=== PATIENT | male | born 1970 | race Caucasian/White ===

== ENCOUNTER 2017-05-13 07:20 | Day surgery (SDC) | payer OTHER ==
[2017-05-11 15:13] VITALS: BP 100/57
[2017-05-11 15:14] LABS: BASOPHILS % (AUTO) 0.3 % (0.0-5.0); EOSINOPHILS % (AUTO) 1.7 % (0.0-8.0); HEMATOCRIT 41.1 % (42-54); LYMPHOCYTES % (AUTO) 33.6 % (21.0-51.0); MEAN CORPUSCULAR HEMOGLOBIN 29.7 pg (27.0-33.0); MEAN CORPUSCULAR HGB CONC 34.1 g/dL (32.0-36.0); MEAN CORPUSCULAR VOLUME 87.1 fL (79-99); NEUTROPHILS % (AUTO) 54.4 % (40.0-77.0); NUCLEATED RED BLOOD CELLS 0.1 % (0.0-0.19); PLATELET COUNT (AUTO) 263 K/uL (130-400); RED BLOOD CELL COUNT(AUTO) 4.72 MIL/uL (4.50-6.20); RED CELL DISTRIBUTION WIDTH 13.4 % (11.0-15.5); WHITE BLOOD COUNT (AUTO) 7.1 K/uL (4.8-10.8)
[2017-05-11 15:27] LABS: CREATININE 1.1 mg/dL (0.5-1.5); POTASSIUM 4.7 mmol/L (3.5-5.1)
[2017-05-11 15:30] LABS: INR 0.95 (0.85-1.15); PARTIAL THROMBOPLASTIN TIME 26.4 SEC (26.3-35.5)
[~2017-05-13] VITALS: Ht 167.6 cm; Wt 115.7 kg
[2017-05-13] VITALS (23 sets, daily range): BP systolic 94–125; BP diastolic 56–87
[~2017-05-13 07:20] MED LIST: ALLO100T PO; AMLO1CAP12 PO; ASPI-1012 PO; ATOR40TA69 PO; CYCL10 PO; LOSA25TA21 PO; METF500T6 PO; OMEGA 3 KRILL OIL PO; OMEP20TA25 PO; SODIUM CHLORIDE 0.9% 1000ML 1,000 ML IV SCH
[2017-05-13] MEDS ORDERED: MIDAZOLAM HCL 1 MG/ML 2ML VIAL ONE ×2 (08:04→08:27)
[2017-05-13] MEDS ORDERED: FENTANYL CITRATE PF 50 MCG/1 ML 2ML VIAL ONE (08:04)
[2017-05-13] MEDS ORDERED: BENZOCAINE 20% 57 GM SPRAY ONE (08:08)
== END 2017-05-13 13:50 | disposition home or self-care (01) ==
LOC: DAH 07:20 → SUH 07:20
PROVIDERS: ATTEND Internal Medicine Cardiovascular Disease
DX: G45.8 Other transient cerebral ischemic attacks and related syndromes (principal); I34.0 Nonrheumatic mitral (valve) insufficiency
CPT/HCPCS: 36415; 80048; 82948 ×2; 85025; 85610; 85730; 93312; A4606; J2250 ×2; J3010; J7030

== ENCOUNTER 2017-06-03 05:53 | Day surgery (SDC) | payer OTHER ==
[2017-06-01 15:47] LABS: BASOPHILS % (AUTO) 1.1 % (0.0-5.0); EOSINOPHILS % (AUTO) 1.5 % (0.0-8.0); HEMATOCRIT 41.7 % (42-54); LYMPHOCYTES % (AUTO) 30.2 % (21.0-51.0); MEAN CORPUSCULAR HEMOGLOBIN 29.3 pg (27.0-33.0); MEAN CORPUSCULAR VOLUME 86.2 fL (79-99); MONOCYTES % (AUTO) 11.9 % (3.0-13.0); NEUTROPHILS % (AUTO) 55.3 % (40.0-77.0); PLATELET COUNT (AUTO) 235 K/uL (130-400); RED BLOOD CELL COUNT(AUTO) 4.84 MIL/uL (4.50-6.20); RED CELL DISTRIBUTION WIDTH 13.2 % (11.0-15.5); WHITE BLOOD COUNT (AUTO) 8.3 K/uL (4.8-10.8)
[2017-06-01 15:48] VITALS: BP 115/64
[2017-06-01 16:02] LABS: INR 0.93 (0.85-1.15); PARTIAL THROMBOPLASTIN TIME 25.9 SEC (26.3-35.5); PROTHROMBIN TIME 9.8 SEC (9.6-11.6)
[2017-06-01 16:05] LABS: POTASSIUM 4.1 mmol/L (3.5-5.1)
[2017-06-03] VITALS (8 sets, daily range): BP systolic 101–118; BP diastolic 63–85
[~2017-06-03] VITALS: Ht 170.2 cm; Wt 104.1 kg
[~2017-06-03 05:53] MED LIST changes: -SODIUM CHLORIDE 0.9% 1000ML 1,000 ML IV SCH
[2017-06-03] MEDS ORDERED: CEFAZOLIN SODIUM 1 GM VIAL IVP SCH (06:00)
[2017-06-03] MEDS ORDERED: SODIUM CHLORIDE 0.9% 1000ML 1,000 ML IV SCH (06:00)
[2017-06-03] MEDS ORDERED: BUPIVACAINE/PF 0.25% 30ML VIAL IJ ONE (07:22)
[2017-06-03] MEDS ORDERED: CEFAZOLIN 1GM / D5W 50ML 150 ML ONE (07:22)
[2017-06-03] MEDS ORDERED: LIDOCAINE HCL 1% MDV 50ML VIAL ONE (07:23)
[2017-06-03] MEDS ORDERED: CEPH250C2 PO (08:28)
[2017-06-03] MEDS ORDERED: ACETAMINOPHEN 325 MG TAB PO PRN (08:30)
== END 2017-06-03 10:30 | disposition home or self-care (01) ==
LOC: DAH 05:53
PROVIDERS: ATTEND Internal Medicine Cardiovascular Disease
DX: I48.0 Paroxysmal atrial fibrillation (principal); G45.9 Transient cerebral ischemic attack, unspecified; R42 Dizziness and giddiness; I34.0 Nonrheumatic mitral (valve) insufficiency; I10 Essential (primary) hypertension; E11.9 Type 2 diabetes mellitus without complications; E78.4 Other hyperlipidemia; M10.9 Gout, unspecified; Z82.49 Family history of ischemic heart disease and other diseases of the circulatory system; Z79.82 Long term (current) use of aspirin; Z79.899 Other long term (current) drug therapy
CPT/HCPCS: 33282; 36415; 80048; 82948; 85025; 85610; 85730; 93005; C1764; J0690; J3490 ×2

== ENCOUNTER → 2020-08-07 | Outpatient (CLI) | payer MEDICARE, OTHER ==
[~2020-08-07] MED LIST changes: +AMLO-104 PO; -AMLO1CAP12 PO; +CEPH250C2 PO; -LOSA25TA21 PO; +LOSA25TA41 PO; +METF-444 PO; -METF500T6 PO
== END | disposition home or self-care (01) ==
LOC: RAH 08:31
PROVIDERS: ATTEND Internal Medicine Cardiovascular Disease
DX: R94.5 Abnormal results of liver function studies (principal)
CPT/HCPCS: 76705

== ENCOUNTER 2021-04-01 08:15 | Day surgery (SDC) | payer MEDICARE ==
[2021-03-30 11:04] LABS: BASOPHILS % (AUTO) 0.5 % (0.0-5.0); EOSINOPHILS % (AUTO) 0.9 % (0.0-8.0); HEMATOCRIT 45.3 % (42-54); LYMPHOCYTES % (AUTO) 26.8 % (21.0-51.0); MEAN CORPUSCULAR HEMOGLOBIN 29.2 pg (27.0-33.0); MEAN CORPUSCULAR HGB CONC 33.3 g/dL (32.0-36.0); MEAN CORPUSCULAR VOLUME 87.5 fL (79-99); MONOCYTES % (AUTO) 8.2 % (3.0-13.0); NEUTROPHILS % (AUTO) 63.1 % (40.0-77.0); PLATELET COUNT (AUTO) 244 K/uL (130-400); RED BLOOD CELL COUNT(AUTO) 5.18 MIL/uL (4.50-6.20); RED CELL DISTRIBUTION WIDTH 12.5 % (11.0-15.5); WHITE BLOOD COUNT (AUTO) 7.4 K/uL (4.8-10.8)
[2021-03-30 11:11] LABS: POTASSIUM 4.6 mmol/L (3.5-5.1)
[2021-03-30 11:22] LABS: INR 0.98 (0.85-1.15); PROTHROMBIN TIME 10.7 SEC (9.6-11.6)
[2021-03-30 11:23] LABS: PARTIAL THROMBOPLASTIN TIME 27.3 SEC (26.3-35.5)
[2021-03-31 12:31] VITALS: BP 149/78
[2021-04-01] VITALS (8 sets, daily range): BP systolic 104–134; BP diastolic 68–86
[~2021-04-01] VITALS: Ht 167.6 cm; Wt 110.0 kg
[~2021-04-01 08:15] MED LIST changes: +0.9%NACL 1000ML 1,000 ML IV SCH; -AMLO-104 PO; -ATOR40TA69 PO; +BENA-8 PO; +CARV6.25 PO; -CEPH250C2 PO; -CYCL10 PO; +HYDR12.54 PO; -LOSA25TA41 PO; -OMEGA 3 KRILL OIL PO; +ROSU20TA31 PO; +TRAM50TA4 PO
[2021-04-01] MEDS ORDERED: BUPIVACAINE/PF 0.25% 30ML VIAL IJ ONE (11:15)
[2021-04-01] MEDS ORDERED: FENTANYL CITRATE PF 50 MCG/1 ML 2ML VIAL ONE (11:16)
[2021-04-01] MEDS ORDERED: MIDAZOLAM HCL 1 MG/ML 2ML VIAL ONE (11:16)
[2021-04-01] MEDS ORDERED: LIDOCAINE HCL 1% MDV 50ML VIAL ONE (11:16)
[2021-04-01] MEDS ORDERED: OCTYL 2-CYANOACRYLATE 1 EACH TP ONE (12:05)
== END 2021-04-01 14:15 | disposition home or self-care (01) ==
LOC: DAH 08:15
PROVIDERS: ATTEND Internal Medicine Cardiovascular Disease
DX: Z45.09 Encounter for adjustment and management of other cardiac device (principal); I67.9 Cerebrovascular disease, unspecified; I10 Essential (primary) hypertension; E11.9 Type 2 diabetes mellitus without complications; E78.2 Mixed hyperlipidemia; M10.9 Gout, unspecified; Z83.438 Family history of other disorder of lipoprotein metabolism and other lipidemia; Z79.01 Long term (current) use of anticoagulants; Z79.82 Long term (current) use of aspirin; Z79.899 Other long term (current) drug therapy; Z98.890 Other specified postprocedural states
CPT/HCPCS: 33286; 36415; 80048; 82948 ×2; 85025; 85610; 85730; 93005; A4215 ×2; A4216; A4221; A4222; A4223 ×3; A4606; A4663; J2250; J3010; J3490 ×2; 99156

== ENCOUNTER 2021-09-27 16:48 | Emergency (ER) | payer MEDICARE ==
[~2021-09-27] VITALS: Ht 167.6 cm; Wt 105.2 kg
[~2021-09-27 16:48] MED LIST changes: -0.9%NACL 1000ML 1,000 ML IV SCH; +OMEP20TA20 PO; -OMEP20TA25 PO
[2021-09-27 17:17] LABS: BASOPHILS % (AUTO) 0.3 % (0.0-5.0); HEMATOCRIT 46.3 % (42-54); LYMPHOCYTES % (AUTO) 13.2 % (21.0-51.0); MEAN CORPUSCULAR HGB CONC 33.5 g/dL (32.0-36.0); MEAN CORPUSCULAR VOLUME 86.7 fL (79-99); MONOCYTES % (AUTO) 4.5 % (3.0-13.0); NEUTROPHILS % (AUTO) 81.6 % (40.0-77.0); PLATELET COUNT (AUTO) 297 K/uL (130-400); RED BLOOD CELL COUNT(AUTO) 5.34 MIL/uL (4.50-6.20); WHITE BLOOD COUNT (AUTO) 11.7 K/uL (4.8-10.8)
[2021-09-27 17:18] LABS: APPEARANCE,URINE CLEAR (CLEAR); BILIRUBIN,URINE SMALL (NEGATIVE); COLOR,URINE YELLOW (YELLOW); GLUCOSE, URINE (UA) NEGATIVE (NEGATIVE); KETONES,URINE 15 mg/dL (NEGATIVE); LEUKOCYTE ESTERASE ,URINE NEGATIVE (NEGATIVE); NITRATE,URINE NEGATIVE (NEGATIVE); OCCULT BLOOD,URINE MODERATE (NEGATIVE); PROTEIN,URINE 30 mg/dL (NEGATIVE); UROBILINOGEN,URINE 0.2 mg/dL (0.2-1.0)
[2021-09-27 17:29] LABS: BACTERIA,URINE Few /HPF (None Seen); CREATININE 1.1 mg/dL (0.5-1.5); POTASSIUM 4.5 mmol/L (3.5-5.1); WBC,URINE 0-1 /HPF (0-1)
[2021-09-27 17:30] LABS: MUCUS,URINE Rare LPF (None Seen); SQUAMOUS EPITHELIAL CELL,UR Rare /HPF (0-2)
[2021-09-27 17:34] LABS: ALBUMIN 4.4 g/dL (3.5-5.0); TOTAL PROTEIN, SERUM 8.2 g/dL (6.0-8.3)
[2021-09-27] MEDS ORDERED: ONDANSETRON 4MG INJ IVP ONE (18:30)
[2021-09-27] MEDS ORDERED: MORPHINE 4 MG SYG IVP ONE (18:30)
[2021-09-27] MEDS ORDERED: 0.9%NACL 1000ML 1,000 ML IV ONE (19:00)
[2021-09-27 19:20] LABS: MAGNESIUM 1.6 mg/dL (1.80-2.40)
[2021-09-27] MEDS ORDERED: METO10TA41 PO (20:13)
[2021-09-27 20:16] VITALS: BP 134/83
== END 2021-09-27 20:42 | disposition home or self-care (01) ==
LOC: EDH 16:48
DX: R11.2 Nausea with vomiting, unspecified (principal); R10.9 Unspecified abdominal pain; E11.9 Type 2 diabetes mellitus without complications; I10 Essential (primary) hypertension; Z79.84 Long term (current) use of oral hypoglycemic drugs; Z79.899 Other long term (current) drug therapy
CPT/HCPCS: 99284; 74176; 96374; 96361; 96375; 82550; 83735; 84484; 80053; 83690; 85025; 81001; 36415; J2405; J2270